=== PATIENT | male | born 1945 | race Caucasian/White ===

== ENCOUNTER 2018-08-29 17:27 | Observation (INO) | payer BC, MEDICARE ==
--- NOTE | 2018-08-29 17:45 | ED PDOC ---
HPI:STROKE - Time Time: 17:40 - Chief Complaint Chief Complaint: Slurred speech, Facial droop - Onset Onset: Hours (x3 hours ago) - Notes: Notes:: Patient is a 72 year old male with a past medical history of diabetes, hypertension, and hyperlipidemia, who presents to the emergency department after sustaining a possible stroke. According to patient's daughter, patient was at [employer] with his friend/neighbor around 1440 today. His friend stated that he noticed the patient to have slurred speech and dizziness. Patient drank orange juice and proceeded to go home. 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 The paramedics found him to have a low blood pressure and a blood sugar of 186. Patient refused medical treatment at home. The friend called the patient's daughter who felt that the patient seemed a bit "off" after speaking with him on the phone. She notified her brother who felt the same way, at which point she decided to go and see him at his house. When the daughter arrived to patient's home, she found him to have slurred speech, diaphoretic, not as coherent and seemed upset. PMD: No provider NIHSS Stroke Scale - Date/Time Evaluation Performed Date Performed: 08/29/18 Time Performed: 17:40 When Was NIHSS Performed: Baseline - How Severe is the Stroke Level of Consciousness: 0=Alert LOC to Questions: 0=Both comments correct LOC to commands: 0=Obeys both correctly Best Gaze: 0=Normal Visual: 0=No visual loss Facial: 2=Partial (lower face paralysis) Motor Arm - Left: 0=No drift Motor Arm - Right: 0=No drift Motor Leg - Left: 0=No drift Motor Leg - Right: 0=No drift Limb Ataxia: 0=Absent Sensory: 0=Normal Best Language: 1=Mild to moderate aphasia Dysarthia: 1=Mild to moderate slurring Extinction & Inattention (Neglect): 0=Normal, no object Score: 4 rTPA Inclusion/Exclusion - Refusal of Treatment Patient Refused Treatment: No - Inclusion Criteria for Altepase Patient is 18 years or Older: Yes The Clinical Diagnosis of Ischemic Stroke That is Causing a Potentially Disabli ng Neurological Deficit: Yes Time of Onset is Well Established to be Less Than 270 Minute Before Treatment Would Begin: Yes Risk/Benefit Discussed With Patient/Family Member Present: Yes - Warning to TPA With Conditions Condition: Rapid Improvement Past Medical History Reviewed: Historical Data, Nursing Documentation, Vital Signs Vital Signs: Last Vital Signs Temp 98.1 F 08/29/18 17:33 Pulse 72 08/29/18 17:33 Resp 16 08/29/18 17:33 BP 196/67 H 08/29/18 17:33 Pulse Ox 100 08/29/18 17:33 - Medical History PMH: No Chronic Diseases, Diabetes, HTN, Hyperlipidemia Other PMH: tuberculosis - Surgical History Surgical History: No Surg Hx - Family History Family History: States: CAD - Social History Current smoker - smoking cessation education provided: No Ex-Smoker (has not smoked in the last 12 months): No - Home Medications Home Medications: Ambulatory Orders Medication Instructions Recorded Aspirin [Adult Aspirin] 81 mg PO DAILY #30 tablet. 08/30/18 Aspirin [Ecotrin] 81 mg PO DAILY tabec 08/30/18 Atorvastatin [Lipitor] 20 mg PO DAILY 08/30/18 Carvedilol [Coreg] 6.25 mg PO BID 08/30/18 Clopidogrel [Plavix] 75 mg PO DAILY #30 tab 08/30/18 Clopidogrel [Plavix] 75 mg PO DAILY #30 tab 08/30/18 Folic Acid 1 mg PO DAILY 08/30/18 GlipiZIDE [Glucotrol] 10 mg PO DAILY 08/30/18 Insulin Aspart [Novolog Flexpen] 20 units SC HS 08/30/18 Insulin Lispro [Humalog (Insulin 10 units SQ DAILY 08/30/18 Lispro)] Insulin Lispro [Humalog (Insulin 15 unit SQ DAILY 08/30/18 Lispro)] Insulin Lispro [Humalog (Insulin 20 unit SQ DAILY 08/30/18 Lispro)] Losartan/Hydrochlorothiazide 1 each PO DAILY 08/30/18 [Losartan-Hctz 50-12.5 mg Tab] MetFORMIN [glucoPHAGE] 1,000 mg PO BID 08/30/18 PARoxetine [Paxil] 20 mg PO DAILY 08/30/18 Pantoprazole [Protonix] 40 mg PO DAILY #30 ect 08/30/18 SITagliptin [Januvia] 100 mg PO DAILY 08/30/18 - Allergies Allergies/Adverse Reactions: Allergies Allergy/AdvReac Type Severity Reaction Status Date / Time No Known Allergies Allergy Verified 08/29/18 17:31 Review of Systems ROS Statement: Except As Marked, All Systems Reviewed And Found Negative (and as per HPI) Constitutional: Positive for: Sweats Neurological: Positive for: Change in Speech, Other Physical Exam - Reviewed Nursing Documentation Reviewed: Yes Vital Signs Reviewed: Yes - Physical Exam Appears: Positive for: In Acute Distress Head Exam: Positive for: ATRAUMATIC, NORMOCEPHALIC Skin: Positive for: Warm, Dry Eye Exam: Positive for: EOMI, PERRL. Negative for: Nystagmus ENT: Negative for: Pharyngeal Erythema, Tonsillar Exudate Neck: Positive for: Painless ROM, Supple Cardiovascular/Chest: Positive for: Regular Rate, Rhythm. Negative for: Murmur Respiratory: Positive for: Normal Breath Sounds. Negative for: Respiratory Dist ress Gastrointestinal/Abdominal: Positive for: Soft. Negative for: Tenderness Back: Positive for: Normal Inspection. Negative for: Decreased ROM Extremity: Positive for: Normal ROM. Negative for: Deformity Lymphatic: Negative for: Adenopathy Neurological/Psych: Positive for: Awake, Alert, Oriented, Facial Droop - Laboratory Results Result Diagrams: 08/29/18 17:46 08/30/18 04:45 - ECG ECG: Positive for: Interpreted By Ms ECG Rhythm: Positive for: Normal QRS, Normal ST Segment, Sinus Rhythm O2 Sat by Pulse Oximetry: 100 - Radiology X-Ray: Interpreted by Ms X-Ray Interpretation: No Acute Disease - Progress Condition: Improving,but remains with symptoms - Critical Care Total Time (In Min): 30 Documented Critical Care: Time excludes all time spent performint seperately billable procedures Medical Decision Making Medical Decision Making: Time: 1745 Impression: possible stroke Plan: --BBK Type and screen --CT head without [code stroke] --EKG --CMP --Hemoglobin A1C --Lipid panel --Troponin I --Stroke team Consultation --CBC with differential --PT --PTT --Chest xray --Sodium chloride 1,000 ml --Saline lock --Vital signs Q15 min --Glucose, Blood, POC --Call stroke team --Nursing swallow screen --ED obtain labs STAT Time: 1749 --Consultation with Dr. Wallace. Time: 1754 --Reevaluated patient when back from CT and patient demonstrated no facial droop. He appears to be more easily conversing and symptoms seem to be resolving. --Thrombolytics will not be give at this time. CT head Findings: Accession No. : [id number] Patient Name / ID : ARACELI HUDSON / [id number] Exam Date : 08/29/2018 17:42:15 ( Approved ) Study Comment : Sex / Age : M / 72Y Creator : Samuel De La Cruz MD Dictator : Samuel De La Cruz MD Asset Protection Professional : Perforator Typist : Samuel De La Cruz MD Approver2 : Report Date : 08/29/2018 17:58:47 My Comment : Date of service: 08/29/2018 PROCEDURE: CT HEAD WITHOUT CONTRAST. HISTORY: code stroke COMPARISON: None available. TECHNIQUE: Axial computed tomography images were obtained through the head/brain without intravenous contrast. Radiation dose: Total exam DLP = 1001.92 mGy-cm. This CT exam was performed using one or more of the following dose reduction techniques: Automated exposure control, adjustment of the mA and/or kV according to patient size, and/or use of iterative reconstruction technique. FINDINGS: HEMORRHAGE: No intracranial hemorrhage. BRAIN: Good corticomedullary differentiation is seen. Proportional, diffuse expansion of the ventriculosulcal and cisternal spaces is appreciated with white matter lucency compatible with diffuse cerebral atrophy and chronic microangiopathy. No suspicious extra-axial fluid collection is identified and the midline brain anatomy appears grossly nonfocal as imaged. There is no mass effect throughout. VENTRICLES: Unremarkable. No hydrocephalus. CALVARIUM: Unremarkable. PARANASAL SINUSES: Unremarkable as visualized. No significant inflammatory changes. MASTOID AIR CELLS: Unremarkable as visualized. No inflammatory changes. OTHER FINDINGS: None. IMPRESSION: Age-appropriate age related neuro degenerative change are identified as discussed above. No definite acute findings by standard CT criteria. Follow-up CT or MRI advised given clinical history. Findings discussed with Dr. Banerjee with written down and read back verification 08/29/2018 5:55 p.m.. Time: 1756 --Radiologist called and reported a negative CT of the head. --CTA head and neck order for further evaluation. Time: 1853 CTA finding: Accession No. : [id number] Patient Name / ID : ARACELI HUDSON / [id number] Exam Date : 08/29/2018 18:23:30 ( Approved ) Study Comment : Sex / Age : M / 72Y Creator : Samuel De La Cruz MD Dictator : Samuel De La Cruz MD Asset Protection Professional : Perforator Typist : Samuel De La Cruz MD Approver2 : Report Date : 08/29/2018 18:54:55 My Comment : Date of service: 08/29/2018 PROCEDURE: CT Angiography of the Brain. HISTORY: code stroke COMPARISON: None available. TECHNIQUE: CT angiography of the head and neck was performed following intravenous contrast administration. Coronal and sagittal maximum intensity projection reformatted images were generated. Contrast Dose: Omnipaque 320, 95 cc Radiation dose: Total exam DLP = 457.28 mGy-cm. This CT exam was performed using one or more of the following dose reduction techniques: Automated exposure control, adjustment of the mA and/or kV according to patient size, and/or use of iterative reconstruction technique. FINDINGS: INTERNAL CEREBRAL ARTERIES: Note is made of partially calcified atherosclerosis of the bilateral cavernous internal carotid artery segments without significant stenosis. The skull base, petrous, and supraclinoid segments are bilaterally widely patent. ANTERIOR CEREBRAL ARTERIES: The bilateral A2 segments are unremarkable and widely patent as well as left A1 DEBORAH segment. The right A1 DEBORAH segment is hypoplastic. Smaller distal branches unremarkable, as visualized. MIDDLE CEREBRAL ARTERIES: Unremarkable. M1 and M2 segments are widely patent. Perisylvian branches grossly symmetric. POSTERIOR CIRCULATION: Basilar Artery: Unremarkable. Distal Vertebral Arteries: Balance vertebrobasilar circulation. Posterior Cerebral Arteries: Unremarkable. Posterior Inferior Cerebellar Arteries: Unremarkable. NECK CTA: Aortic Arch: Normal three vessl arch identified. Common Carotid arteries: The bilateral common carotid appear widely patent from their origins to their bifurcations with no significant stenosis appreciated. No evidence to suggest common carotid artery dissection. Internal Carotid arteries: No significant stenosis is appreciated throughout the cervical internal carotid artery segments bilaterally and there is no evidence of dissection either. External Carotid arteries: Appear unremarkable bilaterally. Vertebral arteries: The bilateral vertebral arteries appear normal in caliber from their origins to their distal cervical segments. No significant stenosis or definite pattern of dissection. ANEURYSM/ VASCULAR MALFORMATIONS: None. OTHER FINDINGS: None. IMPRESSION: 1. No large vessel occlusion appreciable on intracranial MR angiography. Limited cavernous atherosclerotic ICA changes are identified bilaterally. 2. No occlusion of the cervical CCA/ICA complexes bilaterally or the bilateral vertebral arteries. No significant stenosis encountered either. Time: 1929 --Discussed with Dr. Moreno, hospitalist, about admission. --Discussed with Dr. Wallace who recommends Plavix load. --Discussed plan of care with patient and patient's daughter. Scribe Attestation: Documented by Ernie Rizo, acting as a scribe for Dorothy Banerjee MD. Provider Scribe Attestation: All medical record entries made by the Scribe were at my direction and personally dictated by me. I have reviewed the chart and agree that the record accurately reflects my personal performance of the history, physical exam, medical decision making, and the department course for this patient. I have also personally directed, reviewed, and agree with the discharge instructions and disposition. Disposition - Clinical Impression Clinical Impression: TIA (transient ischemic attack) Counseled Patient/Family Regarding: Studies Performed, Diagnosis - Disposition Disposition Time: 19:00 Condition: FAIR - Pt Status Changed To: Hospital Disposition Of: Observation - POA Present On Arrival: None
[2018-08-29 17:55] LABS: BASO % 0.2 % (0.0-2.0); EOS % 0.2 % (0.0-4.0); LYMPH # 1.5 K/uL (1.0-4.3); LYMPH % 12.7 % (20.0-40.0); MEAN CELL VOLUME 89.4 fl (80.0-94.0); MEAN CORPUSCULAR HEMOGLOBIN 30.2 pg (27.0-31.0); MEAN CORPUSCULAR HGB CONC 33.7 g/dL (33.0-37.0); MEAN PLATELET VOLUME 8.1 fl (7.2-11.7); MONO # 0.6 K/uL (0.0-0.8); MONO % 4.7 % (0.0-10.0); NEUT % 82.2 % (50.0-75.0); NRBC % 0.1 % (0.0-0.0); RBC 4.65 Mil/uL (4.40-5.90); RED CELL DISTRIBUTION WIDTH 14.2 % (11.5-14.5); WHITE BLOOD COUNT 12.2 K/uL (4.8-10.8)
--- NOTE | 2018-08-29 18:02 | CT ---
Date of service: 08/29/2018 PROCEDURE: CT HEAD WITHOUT CONTRAST. HISTORY: code stroke COMPARISON: None available. TECHNIQUE: Axial computed tomography images were obtained through the head/brain without intravenous contrast. Radiation dose: Total exam DLP = 1001.92 mGy-cm. This CT exam was performed using one or more of the following dose reduction techniques: Automated exposure control, adjustment of the mA and/or kV according to patient size, and/or use of iterative reconstruction technique. FINDINGS: HEMORRHAGE: No intracranial hemorrhage. BRAIN: Good corticomedullary differentiation is seen. Proportional, diffuse expansion of the ventriculosulcal and cisternal spaces is appreciated with white matter lucency compatible with diffuse cerebral atrophy and chronic microangiopathy. No suspicious extra-axial fluid collection is identified and the midline brain anatomy appears grossly nonfocal as imaged. There is no mass effect throughout. VENTRICLES: Unremarkable. No hydrocephalus. CALVARIUM: Unremarkable. PARANASAL SINUSES: Unremarkable as visualized. No significant inflammatory changes. MASTOID AIR CELLS: Unremarkable as visualized. No inflammatory changes. OTHER FINDINGS: None. IMPRESSION: Age-appropriate age related neuro degenerative change are identified as discussed above. No definite acute findings by standard CT criteria. Follow-up CT or MRI advised given clinical history. Findings discussed with Dr. Banerjee with written down and read back verification 08/29/2018 5:55 p.m..
[2018-08-29] MEDS ORDERED: Iodixanol 320 MG/ML 100 ML BOTTLE IV ONE (18:03)
[2018-08-29] MEDS ORDERED: Sodium Chloride 0.9% 50 ML IV ONE (18:04)
[2018-08-29 18:13] LABS: ALB/GLOB RATIO 1.2 (1.0-2.1); ALBUMIN 4.5 g/dL (3.5-5.0); ALT/SGPT 27 U/L (21-72); AST/SGOT 29 U/L (17-59); BLOOD UREA NITROGEN 25 mg/dl (9-20); CALCIUM 9.9 mg/dL (8.4-10.2); GFR NON-AFRICAN AMERICAN > 60; HDL CHOLESTEROL 44 MG/DL (30-70)
[2018-08-29 18:19] LABS: PROTHROMBIN TIME 11.6 Seconds (9.8-13.1)
[2018-08-29 18:21] LABS: PARTIAL THROMBOPLASTIN TIME 30.9 Seconds (25.6-37.1)
[2018-08-29 18:24] LABS: LDL CHOLESTEROL 88 mg/dL (0-129)
--- NOTE | 2018-08-29 18:58 | CT ---
Date of service: 08/29/2018 PROCEDURE: CT Angiography of the Brain. HISTORY: code stroke COMPARISON: None available. TECHNIQUE: CT angiography of the head and neck was performed following intravenous contrast administration. Coronal and sagittal maximum intensity projection reformatted images were generated. Contrast Dose: Omnipaque 320, 95 cc Radiation dose: Total exam DLP = 457.28 mGy-cm. This CT exam was performed using one or more of the following dose reduction techniques: Automated exposure control, adjustment of the mA and/or kV according to patient size, and/or use of iterative reconstruction technique. FINDINGS: INTERNAL CEREBRAL ARTERIES: Note is made of partially calcified atherosclerosis of the bilateral cavernous internal carotid artery segments without significant stenosis. The skull base, petrous, and supraclinoid segments are bilaterally widely patent. ANTERIOR CEREBRAL ARTERIES: The bilateral A2 segments are unremarkable and widely patent as well as left A1 DEBORAH segment. The right A1 DEBORAH segment is hypoplastic. Smaller distal branches unremarkable, as visualized. MIDDLE CEREBRAL ARTERIES: Unremarkable. M1 and M2 segments are widely patent. Perisylvian branches grossly symmetric. POSTERIOR CIRCULATION: Basilar Artery: Unremarkable. Distal Vertebral Arteries: Balance vertebrobasilar circulation. Posterior Cerebral Arteries: Unremarkable. Posterior Inferior Cerebellar Arteries: Unremarkable. NECK CTA: Aortic Arch: Normal three vessl arch identified. Common Carotid arteries: The bilateral common carotid appear widely patent from their origins to their bifurcations with no significant stenosis appreciated. No evidence to suggest common carotid artery dissection. Internal Carotid arteries: No significant stenosis is appreciated throughout the cervical internal carotid artery segments bilaterally and there is no evidence of dissection either. External Carotid arteries: Appear unremarkable bilaterally. Vertebral arteries: The bilateral vertebral arteries appear normal in caliber from their origins to their distal cervical segments. No significant stenosis or definite pattern of dissection. ANEURYSM/ VASCULAR MALFORMATIONS: None. OTHER FINDINGS: None. IMPRESSION: 1. No large vessel occlusion appreciable on intracranial MR angiography. Limited cavernous atherosclerotic ICA changes are identified bilaterally. 2. No occlusion of the cervical CCA/ICA complexes bilaterally or the bilateral vertebral arteries. No significant stenosis encountered either.
[2018-08-29] MEDS: Sodium Chloride 0.9% 1,000 ML IV SCH (19:07)
--- NOTE | 2018-08-29 20:55 | CP.PCM.HP ---
<Sultan Kay - Last Filed: 08/29/18 22:30> History of Present Illness - History of Present Illness History of Present Illness: CC: Slurred speech HPI: 72 year old male with PMHx of HTN, IDDM II, hyperlipidemia presented to the [facility] ED for evaluation of possible stroke. According to patient's daughter, patient went to [facility] with his friend around 1400 today and she received a call from her father's friend stating patient has slurred speech and dizziness. Patient's friend gave him orange juice, brought him home and EMS was called. Patient's son checked his blood sugar at home and it was 160s. Patient's daughter reports patient develops slurred speech, diaphoretic and incoherent sp eech. Patient was also seem to be agitated with them. Denies any hx similar symptoms in the past. Denies any hx CAD. Patient denies being on low dose aspirin. In the ED, NIHSS score was 4, code stroke was called and neurology Dr. Wallace was consulted. Patient's head CT was negative for acute stroke and CTA of head/neck was negative for large vessel occlusion. However, patient's symptoms started to resolve and patient was back to his baseline at 1800. Patient received a dose of asprin 325 mg and plavix 75 mg. Patient is admitted for evaluation of CVA. ROS: all 12 systems reviewed and negative except as mentioned in HPI PMD: Dr. 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 Patient's pharmacy was closed ([facility]). Present on Admission - Present on Admission Any Indicators Present on Admission: No Review of Systems - Review of Systems Review of Systems: All 12 systems reviewed and negative except as mentioned in HPI Past Patient History - Infectious Disease Hx of Infectious Diseases: None - Past Social History Smoking Status: Never Smoked - CARDIAC Hx Hypertension: Yes - ENDOCRINE/METABOLIC Hx Diabetes Mellitus Type 2: Yes - PSYCHIATRIC Hx Substance Use: No - SURGICAL HISTORY Hx Surgeries: No - ANESTHESIA Hx Anesthesia: No Meds Allergies/Adverse Reactions: Allergies Allergy/AdvReac Type Severity Reaction Status Date / Time No Known Allergies Allergy Verified 08/29/18 17:31 Physical Exam - Constitutional Appears: No Acute Distress - Head Exam Head Exam: NORMAL INSPECTION - Eye Exam Eye Exam: EOMI, Normal appearance, PERRL Pupil Exam: NORMAL ACCOMODATION - ENT Exam ENT Exam: Mucous Membranes Moist - Neck Exam Neck exam: Positive for: Normal Inspection - Respiratory Exam Respiratory Exam: Clear to Auscultation Bilateral, NORMAL BREATHING PATTERN. absent: Rhonchi, Wheezes - Cardiovascular Exam Cardiovascular Exam: REGULAR RHYTHM, +S1, +S2 - GI/Abdominal Exam GI & Abdominal Exam: Normal Bowel Sounds, Soft. absent: Tenderness - Extremities Exam Extremities exam: Positive for: normal inspection. Negative for: calf ten derness, pedal edema - Neurological Exam Neurological exam: Alert, CN II-XII Intact, Oriented x3, Reflexes Normal Additional comments: At the time of my evaluation around 20:30 AAO X 3, follows commands appropriately Speech is clear. NO aphasia or dysarthria No facial asymmetry Motor strength 5/5 both upper extremities and lower extremities; and sensory intact No pronator drip Negative finger to nose test reflexes normal - Psychiatric Exam Psychiatric exam: Normal Affect - Skin Skin Exam: Normal Color Results - Vital Signs Recent Vital Signs: Last Vital Signs Temp 97.4 F L 08/29/18 20:39 Pulse 80 08/29/18 20:39 Resp 19 08/29/18 20:39 BP 135/74 08/29/18 20:39 Pulse Ox 100 08/29/18 20:39 - Labs Result Diagrams: 08/29/18 17:46 08/29/18 17:57 Labs: Laboratory Results - last 24 hr 08/29/18 08/29/18 08/29/18 17:37 17:46 17:46 WBC 12.2 H RBC 4.65 Hgb 14.0 Hct 41.5 MCV 89.4 MCH 30.2 MCHC 33.7 RDW 14.2 Plt Count 292 MPV 8.1 Neut % (Auto) 82.2 H Lymph % (Auto) 12.7 L [place] % (Auto) 4.7 Eos % (Auto) 0.2 Baso % (Auto) 0.2 Neut # (Auto) 10.0 H Lymph # (Auto) 1.5 [place] # (Auto) 0.6 Eos # (Auto) 0.0 Baso # (Auto) 0.0 PT 11.6 INR 1.0 APTT 30.9 Sodium Potassium Chloride Carbon Dioxide Anion Gap BUN Creatinine Est GFR ( Amer) Est GFR (Non-Af Amer) POC Glucose (mg/dL) 185 H Random Glucose Calcium Total Bilirubin AST ALT Alkaline Phosphatase Troponin I Total Protein Albumin Globulin Albumin/Globulin Ratio Triglycerides Cholesterol LDL Cholesterol Direct HDL Cholesterol Blood Type Antibody Screen BBK History Checked 08/29/18 08/29/18 17:57 17:57 WBC RBC Hgb Hct MCV MCH MCHC RDW Plt Count MPV Neut % (Auto) Lymph % (Auto) [place] % (Auto) Eos % (Auto) Baso % (Auto) Neut # (Auto) Lymph # (Auto) [place] # (Auto) Eos # (Auto) Baso # (Auto) PT INR APTT Sodium 138 Potassium 3.9 Chloride 96 L Carbon Dioxide 25 Anion Gap 21 H BUN 25 H Creatinine 1.0 Est GFR ( Amer) > 60 Est GFR (Non-Af Amer) > 60 POC Glucose (mg/dL) Random Glucose 252 H Calcium 9.9 Total Bilirubin 0.6 AST 29 ALT 27 Alkaline Phosphatase 76 Troponin I < 0.0120 Total Protein 8.2 Albumin 4.5 Globulin 3.7 Albumin/Globulin Ratio 1.2 Triglycerides 300 H Cholesterol 213 H LDL Cholesterol Direct 88 HDL Cholesterol 44 Blood Type O POSITIVE Antibody Screen Negative BBK History Checked No verified bt Assessment & Plan - Assessment and Plan (Free Text) Assessment: 72 year old male with PMHx of HTN, IDDM II, hyperlipidemia presented to the [facility] ED for evaluation of possible stroke. According to patient's daughter, patient went to [facility] with his friend around 1400 and she received a call from her father's friend stating patient has slurred speech and dizziness.In the ED, NIHSS score was 4, code stroke was called and neurology Dr. Wallace was consulted. Patient's head CT was negative for acute stroke and CTA of head/neck was negative for large vessel occlusion. However, patient's symptoms started to resolve and patient was back to his baseline at 1800. Patient received a dose of asprin 325 mg and plavix 75 mg. Patient is admitted for evaluation of CVA. Plan: Slurred speech and aphasia likely secondary to TIA vs stroke -Admit to telemetry -NIHSS score 4 upon arrival to ED -Code stroke activated and Neurologist Dr. Wallace consulted -Head CT: Age-appropriate age related neuro degenerative change are identified as discussed above. No definite acute findings by standard CT criteria. -MRA head and neck: . No large vessel occlusion appreciable on intracranial MR angiography. Limited cavernous atherosclerotic ICA changes are identified bilaterally. No occlusion of the cervical CCA/ICA complexes bilaterally or the bilateral vertebral arteries. No significant stenosis encountered either. -s/p aspirin 325 mg and plavix 75 mg in ED -ECG normal sinus rhythm @75 bpm. -troponin x 1 neg -Neuro check q4 hrs -Swallow eval passed in ED -start atorvastin 80 mg po qhs -PT/OT eval -f/u brain MRI and echo -f/u am labs IDDMII -accucheck ACHS -Low sliding scale insulin -Will resume home medication once med list available in AM HTN -stable now -Will resume home medication once med list available in AM -continue to monitor Hyperlipidemia -start atorvastatin 80 mg po qhs DVT prophylaxis -Lovenox 40 mg sc daily Code status -Full code Patient seen, examined and plan discussed with Mikey Villanueva, pgy-2 <Nilesh Jensen M - Last Filed: 08/30/18 02:19> Results - Vital Signs Recent Vital Signs: Last Vital Signs Temp 98.4 F 08/30/18 00:04 Pulse 74 08/30/18 00:04 Resp 16 08/30/18 00:04 BP 126/63 08/30/18 00:04 Pulse Ox 100 08/30/18 00:04 - Labs Result Diagrams: 08/29/18 17:46 08/29/18 17:57 Labs: Laboratory Results - last 24 hr 08/29/18 08/29/18 08/29/18 17:37 17:46 17:46 WBC 12.2 H RBC 4.65 Hgb 14.0 Hct 41.5 MCV 89.4 MCH 30.2 MCHC 33.7 RDW 14.2 Plt Count 292 MPV 8.1 Neut % (Auto) 82.2 H Lymph % (Auto) 12.7 L [place] % (Auto) 4.7 Eos % (Auto) 0.2 Baso % (Auto) 0.2 Neut # (Auto) 10.0 H Lymph # (Auto) 1.5 [place] # (Auto) 0.6 Eos # (Auto) 0.0 Baso # (Auto) 0.0 PT 11.6 INR 1.0 APTT 30.9 Sodium Potassium Chloride Carbon Dioxide Anion Gap BUN Creatinine Est GFR ( Amer) Est GFR (Non-Af Amer) POC Glucose (mg/dL) 185 H Random Glucose Calcium Total Bilirubin AST ALT Alkaline Phosphatase Troponin I Total Protein Albumin Globulin Albumin/Globulin Ratio Triglycerides Cholesterol LDL Cholesterol Direct HDL Cholesterol Blood Type Antibody Screen BBK History Checked 08/29/18 08/29/18 08/30/18 17:57 17:57 00:16 WBC RBC Hgb Hct MCV MCH MCHC RDW Plt Count MPV Neut % (Auto) Lymph % (Auto) [place] % (Auto) Eos % (Auto) Baso % (Auto) Neut # (Auto) Lymph # (Auto) [place] # (Auto) Eos # (Auto) Baso # (Auto) PT INR APTT Sodium 138 Potassium 3.9 Chloride 96 L Carbon Dioxide 25 Anion Gap 21 H BUN 25 H Creatinine 1.0 Est GFR ( Amer) > 60 Est GFR (Non-Af Amer) > 60 POC Glucose (mg/dL) Random Glucose 252 H Calcium 9.9 Total Bilirubin 0.6 AST 29 ALT 27 Alkaline Phosphatase 76 Troponin I < 0.0120 < 0.0120 Total Protein 8.2 Albumin 4.5 Globulin 3.7 Albumin/Globulin Ratio 1.2 Triglycerides 300 H Cholesterol 213 H LDL Cholesterol Direct 88 HDL Cholesterol 44 Blood Type O POSITIVE Antibody Screen Negative BBK History Checked No verified bt Assessment & Plan - Assessment and Plan (Free Text) Plan: History as documented by resident was reviewed with patient and resident. I personally performed the price elements of physical exam and agree with the above findings. Diagnostics reviewed. X-ray and EKG as above interpreted by me. Medical decision making and plan of care performed by me. 78 yo male with hx of HTN, HLD, DM-II p/w TIA symptoms. Code stroke was called and imaging including CT head and CTA head/neck failed to reveal any acute pathology. Symptoms resolved in ED. Not a tPA candidate. Upon my evaluation neuro-exam is completely non-focal. Will admit under obs/tele with frequent accucheks. ASA and statin. Optimize BP. Further work up as per neurology recommendation. - Date & Time Date: 08/29/18 Time: 22:30
[2018-08-29] MEDS ORDERED: Glucagon Recombinant 1 mg Inj IM PRN (21:41)
[2018-08-29] MEDS ORDERED: Dextrose 50% SYRINGE Inj (50 ml) IV PRN (21:41)
[2018-08-29] MEDS: Insulin Regular 100 units/ml SC SCH (22:00)
[2018-08-30] MEDS: Sodium Chloride 0.9% 1,000 ML IV SCH ×2 (04:27→17:03)
[2018-08-30 05:49] VITALS: RESP 18
[2018-08-30 06:29] LABS: ALBUMIN 3.8 g/dL (3.5-5.0); ALT/SGPT 36 U/L (21-72); AST/SGOT 26 U/L (17-59); BLOOD UREA NITROGEN 19 mg/dl (9-20); CALCIUM 9.3 mg/dL (8.4-10.2); GFR NON-AFRICAN AMERICAN > 60
[2018-08-30] MEDS ORDERED: Enoxaparin 40 mg Syringe SC SCH (09:00)
[2018-08-30] MEDS ORDERED: Pantoprazole 40 mg EC Tab PO SCH (09:00)
[2018-08-30] MEDS: Insulin Regular 100 units/ml SC SCH ×3 (10:35→17:00)
--- NOTE | 2018-08-30 11:39 | RAD ---
Date of service: 08/29/2018 HISTORY: Code Stroke COMPARISON: No prior. FINDINGS: LUNGS: The lungs are well inflated and clear. There are fibrotic changes in the left upper lobe. PLEURA: No pleural effusions or pneumothorax. CARDIOVASCULAR: The heart is normal in size. No aortic atherosclerotic calcifications present. OSSEOUS STRUCTURES: Within normal limits for the patient's age. VISUALIZED UPPER ABDOMEN: Normal. OTHER FINDINGS: None. IMPRESSION: No active pulmonary disease.
--- NOTE | 2018-08-30 13:05 | MRI ---
Date of service: 08/30/2018 PROCEDURE: MRI BRAIN WITHOUT CONTRAST HISTORY: slurred speech, eval for CVA COMPARISON: CT head without contrast from 08/29/2018. TECHNIQUE: Multiplanar, multisequence MR images of the brain were obtained without intravenous contrast enhancement. FINDINGS: HEMORRHAGE: None DWI: No evidence of an acute or early subacute infarction. BRAIN PARENCHYMA: There are moderate chronic microangiopathic changes. There is no mass, mass effect or abnormal extra-axial fluid collection. There is no territorial infarction. The midline sagittal structures are normal. VENTRICLES: There is mild age-related global parenchymal volume loss and proportionate enlargement of the ventricles and cortical sulci. CRANIUM: There is normal bone marrow signal pattern. ORBITS: Grossly unremarkable. PARANASAL SINUSES/MASTOIDS: Predominantly clear. VASCULAR SYSTEM: There are normal signal voids in the larger intracranial arteries. OTHER FINDINGS: None. IMPRESSION: No acute intracranial abnormality. Moderate chronic microangiopathic changes and mild age-related global parenchymal loss.
--- NOTE | 2018-08-30 14:17 | CP.PCM.DIS ---
<Yanickhaylie MartínezAmarilis - Last Filed: 08/30/18 14:55> Provider - Provider Date of Admission: 08/29/18 19:08 Attending physician: Lewis Avendaño MD Primary care physician: Non [facility] Provider Consults: 08/29/18 17:39 Stroke Team Consult Stat Comment: Consulting Provider: Neurohospitalist Consulting Physician: NEUROHOSP Neurohospitalist for Consult: Barry Haines Neurohospitalist for Consult: Niles Garcia Reason for Consult: left facial droop 08/30/18 10:00 Social Work Referral Routine Comment: Lives Diomedes Physician Instructions: Reason For Exam: Lives Alone Diagnosis - Discharge Diagnosis (1) TIA (transient ischemic attack) Status: Acute (2) HTN (hypertension) Status: Chronic (3) Diabetes mellitus Status: Chronic (4) Hypertriglyceridemia Status: Chronic Hospital Course - Lab Results Lab Results: Most Recent Lab Values WBC 12.2 K/uL (4.8-10.8) H 08/29/18 17:46 RBC 4.65 Mil/uL (4.40-5.90) 08/29/18 17:46 Hgb 14.0 g/dL (12.0-18.0) 08/29/18 17:46 Hct 41.5 % (35.0-51.0) 08/29/18 17:46 MCV 89.4 fl (80.0-94.0) 08/29/18 17:46 MCH 30.2 pg (27.0-31.0) 08/29/18 17:46 MCHC 33.7 g/dL (33.0-37.0) 08/29/18 17:46 RDW 14.2 % (11.5-14.5) 08/29/18 17:46 Plt Count 292 K/uL (130-400) 08/29/18 17:46 MPV 8.1 fl (7.2-11.7) 08/29/18 17:46 Neut % (Auto) 82.2 % (50.0-75.0) H 08/29/18 17:46 Lymph % (Auto) 12.7 % (20.0-40.0) L 08/29/18 17:46 [place] % (Auto) 4.7 % (0.0-10.0) 08/29/18 17:46 Eos % (Auto) 0.2 % (0.0-4.0) 08/29/18 17:46 Baso % (Auto) 0.2 % (0.0-2.0) 08/29/18 17:46 Neut # (Auto) 10.0 K/uL (1.8-7.0) H 08/29/18 17:46 Lymph # (Auto) 1.5 K/uL (1.0-4.3) 08/29/18 17:46 [place] # (Auto) 0.6 K/uL (0.0-0.8) 08/29/18 17:46 Eos # (Auto) 0.0 K/uL (0.0-0.7) 08/29/18 17:46 Baso # (Auto) 0.0 K/uL (0.0-0.2) 08/29/18 17:46 PT 11.6 Seconds (9.8-13.1) 08/29/18 17:46 INR 1.0 08/29/18 17:46 APTT 30.9 Seconds (25.6-37.1) 08/29/18 17:46 Sodium 141 mmol/l (132-148) 08/30/18 04:45 Potassium 3.6 MMOL/L (3.6-5.0) 08/30/18 04:45 Chloride 101 mmol/L (98-107) 08/30/18 04:45 Carbon Dioxide 28 mmol/L (22-30) 08/30/18 04:45 Anion Gap 16 (10-20) 08/30/18 04:45 BUN 19 mg/dl (9-20) 08/30/18 04:45 Creatinine 0.9 mg/dl (0.8-1.5) 08/30/18 04:45 Est GFR ( Amer) > 60 08/30/18 04:45 Est GFR (Non-Af Amer) > 60 08/30/18 04:45 POC Glucose (mg/dL) 335 mg/dL (65-110) H 08/30/18 10:32 Random Glucose 156 mg/dL (75-110) H 08/30/18 04:45 Hemoglobin A1c 8.5 % (4.2-6.5) H 08/29/18 17:46 Calcium 9.3 mg/dL (8.4-10.2) 08/30/18 04:45 Phosphorus 3.0 mg/dl (2.5-4.5) 08/30/18 04:45 Magnesium 1.7 MG/DL (1.6-2.3) 08/30/18 04:45 Total Bilirubin 0.5 mg/dl (0.2-1.3) 08/30/18 04:45 AST 26 U/L (17-59) 08/30/18 04:45 ALT 36 U/L (21-72) 08/30/18 04:45 Alkaline Phosphatase 70 U/L (38-126) 08/30/18 04:45 Troponin I < 0.0120 ng/mL (0.00-0.120) 08/30/18 04:45 Total Protein 7.3 G/DL (6.3-8.2) 08/30/18 04:45 Albumin 3.8 g/dL (3.5-5.0) 08/30/18 04:45 Globulin 3.6 gm/dL (2.2-3.9) 08/30/18 04:45 Albumin/Globulin Ratio 1.0 (1.0-2.1) 08/30/18 04:45 Triglycerides 300 mg/DL (0-149) H 08/29/18 17:57 Cholesterol 213 mg/dL (0-199) H 08/29/18 17:57 LDL Cholesterol Direct 88 mg/dL (0-129) 08/29/18 17:57 HDL Cholesterol 44 MG/DL (30-70) 08/29/18 17:57 Vitamin B12 527 pg/mL (239-931) 08/30/18 04:45 Blood Type O POSITIVE 08/29/18 17:57 Blood Type Confirm O POSITIVE 08/30/18 08:30 Antibody Screen Negative 08/29/18 17:57 BBK History Checked No verified bt 08/29/18 17:57 - Hospital Course Hospital Course: 72 year old male with PMH of HTN, IDDM II, hyperlipidemia who was admitted for evaluation of possible stroke with slurred speech and dizziness. In the ED NIHSS his score was 4, code stroke was called and neurology Dr. Garcia was consulted. Patient's head CT was negative for acute stroke and CTA of head/neck was negative for large vessel occlusion. Patient's symptoms resolved after presentation to the ED and patient was back to his baseline at 1800 on 08/29/18. Patient received a dose of asprin 325 mg and plavix 75 mg. Patient had a MRI of brain done shows moderate chronic angiopathic changes age related, no acute abnormalities seen, Echocardio done was normal. Patient was also consulted by neurologist and recommendation given to continue aspirin 81 QD, statins. Patient today is found stable, having a conversation clearly without disarthria, follows commands, no facial asymmetry, sensorium and motor strength intact, no pronator drift. Patient denies CP, HOWELL, blurry vision, dizziness, N/V/D, fever, weakness, or other acute medical complaints at this time. Discharge Exam - Head Exam Head Exam: NORMAL INSPECTION - Additional Findings Additional findings: - Constitutional Appears: No Acute Distress - Head Exam Head Exam: NORMAL INSPECTION - Eye Exam Eye Exam: EOMI, Normal appearance, PERRL Pupil Exam: NORMAL ACCOMODATION - ENT Exam ENT Exam: Mucous Membranes Moist - Neck Exam Neck exam: Positive for: Normal Inspection - Respiratory Exam Respiratory Exam: Clear to Auscultation Bilateral, NORMAL BREATHING PATTERN. absent: Rhonchi, Wheezes - Cardiovascular Exam Cardiovascular Exam: REGULAR RHYTHM, +S1, +S2 - GI/Abdominal Exam GI & Abdominal Exam: Normal Bowel Sounds, Soft. absent: Tenderness - Extremities Exam Extremities exam: Positive for: normal inspection. Negative for: calf tenderness, pedal edema - Neurological Exam Neurological exam: Alert, CN II-XII Intact, Oriented x3, Reflexes Normal Additional comments: follows commands, clear speech, no aphasia or dysarthria. No facial asymmetry Motor strength 5/5 both upper extremities and lower extremities. intact sensorium No pronator drift noted. Discharge Plan - Discharge Medications Prescriptions: Aspirin [Adult Aspirin] 81 mg PO DAILY #30 tablet. Clopidogrel [Plavix] 75 mg PO DAILY #30 tab Clopidogrel [Plavix] 75 mg PO DAILY #30 tab Pantoprazole [Protonix] 40 mg PO DAILY #30 ect - Follow Up Plan Condition: GOOD Disposition: HOME/ ROUTINE Patient education suggested?: Yes Instructions: Transient Ischemic Attack (DC) Additional Instructions: Follow up with your PMD within a week Continue with you adherence with your medication and medical management. ED return instructions: Return to the ED if your symptoms recur, or you have HOWELL, CP, difficulties talking, SOB, dizziness, blurry vision, weakness, N/V, or any other new sypmtoms or concern presents. Referrals: Max Jiménez MD [Staff Provider] - <Jazmyn Vega Anh - Last Filed: 08/30/18 18:38> Provider - Provider Date of Admission: 08/29/18 19:08 Attending physician: Lewis Avendaño MD Primary care physician: Non H Provider Consults: 08/29/18 17:39 Stroke Team Consult Stat Comment: Consulting Provider: Neurohospitalist Consulting Physician: NEUROHOSP Neurohospitalist for Consult: Barry Haines Neurohospitalist for Consult: Niles Garcia Reason for Consult: left facial droop 08/30/18 10:00 Social Work Referral Routine Comment: Stevie Hercules Physician Instructions: Reason For Exam: Lives Alone Time Spent in preparation of Discharge (in minutes): 40 Hospital Course - Lab Results Lab Results: Most Recent Lab Values WBC 12.2 K/uL (4.8-10.8) H 08/29/18 17:46 RBC 4.65 Mil/uL (4.40-5.90) 08/29/18 17:46 Hgb 14.0 g/dL (12.0-18.0) 08/29/18 17:46 Hct 41.5 % (35.0-51.0) 08/29/18 17:46 MCV 89.4 fl (80.0-94.0) 08/29/18 17:46 MCH 30.2 pg (27.0-31.0) 08/29/18 17:46 MCHC 33.7 g/dL (33.0-37.0) 08/29/18 17:46 RDW 14.2 % (11.5-14.5) 08/29/18 17:46 Plt Count 292 K/uL (130-400) 08/29/18 17:46 MPV 8.1 fl (7.2-11.7) 08/29/18 17:46 Neut % (Auto) 82.2 % (50.0-75.0) H 08/29/18 17:46 Lymph % (Auto) 12.7 % (20.0-40.0) L 08/29/18 17:46 [place] % (Auto) 4.7 % (0.0-10.0) 08/29/18 17:46 Eos % (Auto) 0.2 % (0.0-4.0) 08/29/18 17:46 Baso % (Auto) 0.2 % (0.0-2.0) 08/29/18 17:46 Neut # (Auto) 10.0 K/uL (1.8-7.0) H 08/29/18 17:46 Lymph # (Auto) 1.5 K/uL (1.0-4.3) 08/29/18 17:46 [place] # (Auto) 0.6 K/uL (0.0-0.8) 08/29/18 17:46 Eos # (Auto) 0.0 K/uL (0.0-0.7) 08/29/18 17:46 Baso # (Auto) 0.0 K/uL (0.0-0.2) 08/29/18 17:46 PT 11.6 Seconds (9.8-13.1) 08/29/18 17:46 INR 1.0 08/29/18 17:46 APTT 30.9 Seconds (25.6-37.1) 08/29/18 17:46 Sodium 141 mmol/l (132-148) 08/30/18 04:45 Potassium 3.6 MMOL/L (3.6-5.0) 08/30/18 04:45 Chloride 101 mmol/L (98-107) 08/30/18 04:45 Carbon Dioxide 28 mmol/L (22-30) 08/30/18 04:45 Anion Gap 16 (10-20) 08/30/18 04:45 BUN 19 mg/dl (9-20) 08/30/18 04:45 Creatinine 0.9 mg/dl (0.8-1.5) 08/30/18 04:45 Est GFR ( Amer) > 60 08/30/18 04:45 Est GFR (Non-Af Amer) > 60 08/30/18 04:45 POC Glucose (mg/dL) 236 mg/dL (65-110) H 08/30/18 16:02 Random Glucose 156 mg/dL (75-110) H 08/30/18 04:45 Hemoglobin A1c 8.5 % (4.2-6.5) H 08/29/18 17:46 Calcium 9.3 mg/dL (8.4-10.2) 08/30/18 04:45 Phosphorus 3.0 mg/dl (2.5-4.5) 08/30/18 04:45 Magnesium 1.7 MG/DL (1.6-2.3) 08/30/18 04:45 Total Bilirubin 0.5 mg/dl (0.2-1.3) 08/30/18 04:45 AST 26 U/L (17-59) 08/30/18 04:45 ALT 36 U/L (21-72) 08/30/18 04:45 Alkaline Phosphatase 70 U/L (38-126) 08/30/18 04:45 Troponin I < 0.0120 ng/mL (0.00-0.120) 08/30/18 04:45 Total Protein 7.3 G/DL (6.3-8.2) 08/30/18 04:45 Albumin 3.8 g/dL (3.5-5.0) 08/30/18 04:45 Globulin 3.6 gm/dL (2.2-3.9) 08/30/18 04:45 Albumin/Globulin Ratio 1.0 (1.0-2.1) 08/30/18 04:45 Triglycerides 300 mg/DL (0-149) H 08/29/18 17:57 Cholesterol 213 mg/dL (0-199) H 08/29/18 17:57 LDL Cholesterol Direct 88 mg/dL (0-129) 08/29/18 17:57 HDL Cholesterol 44 MG/DL (30-70) 08/29/18 17:57 Vitamin B12 527 pg/mL (239-931) 08/30/18 04:45 Blood Type O POSITIVE 08/29/18 17:57 Blood Type Confirm O POSITIVE 08/30/18 08:30 Antibody Screen Negative 08/29/18 17:57 BBK History Checked No verified bt 08/29/18 17:57 Clinical Quality Measures - CQM - Stroke Antithrombotic Prescribed: Yes Anticoagulation Prescribed for Atrial Flutter, Atrial Fibrillation and History of:: Not Applicable Statin prescribed: Yes Attending/Attestation - Attestation I have personally seen and examined this patient.: Yes I have fully participated in the care of the patient.: Yes I have reviewed all pertinent clinical information, including history, physical exam and plan: Yes Notes (Text): TIA HTN DM Hyperlipidemia - Pt's sxs resolved in ED - Pt was observed in Tele- no abn rhythm - ASA, Statin, Plavix started - MRI of Brain : no acute CVA -ECHO: normal EF, wall motion, no PFO - CTA of head and neck : neg - seen by Neuro- Dr garcia - cleared for d/c - ff up with Dr Burns
[2018-08-30 15:53] VITALS: BP 120/68; PULSE 72; TEMP 97.8
--- NOTE | 2018-08-30 17:58 | CARD ---
APPROVED REPORT Date of service: 08/30/2018 EXAM: Two-dimensional and M-mode echocardiogram with Doppler and color Doppler. Other Information Quality : GoodRhythm : NSR INDICATION CVA/TIA 2D DIMENSIONS IVSd1.17 (0.7-1.1cm)LVDd3.20 (3.9-5.9cm) LVOT Diameter2.03 (1.8-2.4cm)PWd0.93 (0.7-1.1cm) IVSs1.56 (0.8-1.2cm)LVDs3.13 (2.5-4.0cm) FS (%) 2.1 %PWs1.05 (0.8-1.2cm) M-Mode DIMENSIONS Left Atrium (MM)3.82 (2.5-4.0cm)IVSd1.21 (0.7-1.1cm) Aortic Root3.71 (2.2-3.7cm)LVDd4.18 (4.0-5.6cm) Aortic Cusp Exc.1.91 (1.5-2.0cm)PWd1.09 (0.7-1.1cm) IVSs1.47 cmFS (%) 40 % LVDs2.50 (2.0-3.8cm)PWs1.44 cm Aortic Valve AoV Peak Mgoqtknk493.7cm/sAoV VTI27.7cmAO Peak GR.11mmHg LVOT Peak Jqhyfmns720.6cm/sLVOT VTI18.28cmAO Mean GR.6mmHg RAMIN (VMAX)1.10jt6JBK (VTI)1.22cm2 Mitral Valve MV E Stwqmkbq72.7cm/sMV DECEL [id number] A Macqocid30.0cm/s MV XLP53ccA/A ratio0.6MVA (PHT)3.08cm2 TDI Lateral E' Peak V10.27cm/sMedial E' Peak V7.25cm/sE/Lateral E'5.7 E/Medial E'8.1 LEFT VENTRICLE The left ventricle is normal size. There is normal left ventricular wall thickness. The left ventricular systolic function is normal. The estimated ejection fraction is 60-65% No regional wall motion abnormalities noted.. Transmitral Doppler flow pattern is Grade I-abnormal relaxation pattern. No left ventricle thrombus noted on this study. There is no ventricular septal defect visualized. There is no left ventricular aneurysm. There is no mass noted in the left ventricle. RIGHT VENTRICLE The right ventricle is normal size. There is normal right ventricular wall thickness. The right ventricular systolic function is normal. ATRIA The left atrium size is normal. The right atrium size is normal. The interatrial septum is intact with no evidence for an atrial septal defect. AORTIC VALVE The aortic valve is normal in structure. No aortic regurgitation is present. There is no aortic valvular stenosis. There is no aortic valvular vegetation. MITRAL VALVE The mitral valve is normal in structure. There is no evidence of mitral valve prolapse. There is no mitral valve stenosis. There is no mitral valve regurgitation noted. TRICUSPID VALVE The tricuspid valve is normal in structure. There is mild tricuspid valve regurgitation noted. There is no tricuspid valve prolapse or vegetation. There is no tricuspid valve stenosis. PULMONIC VALVE The pulmonary valve is normal in structure. There is no pulmonic valvular regurgitation. There is no pulmonic valvular stenosis. GREAT VESSELS The aortic root is normal in size. The ascending aorta is normal in size. The pulmonary artery is normal. The IVC is normal in size and collapses >50% with inspiration. PERICARDIAL EFFUSION There is no pericardial effusion. There is no pleural effusion. <Conclusion> The estimated ejection fraction is 60-65% Transmitral Doppler flow pattern is Grade I-abnormal relaxation pattern. The left atrium size is normal. There is mild tricuspid valve regurgitation noted. The IVC is normal in size and collapses >50% with inspiration. The interatrial septum is intact with no evidence for an atrial septal defect.
--- NOTE | 2018-08-30 18:19 | CP.PCM.CON ---
History of Present Illness - History of Present Illness History of Present Illness: Neurology consult dictated. Patient with resolved symptoms, MRI Normal. Not likely to be stroke. cleard to go home. Dr. Wallace Neurology Past Patient History - Infectious Disease Hx of Infectious Diseases: None - Past Medical History & Family History Past Medical History?: Yes - Past Social History Smoking Status: Never Smoked - CARDIAC Hx Hypertension: Yes - PULMONARY Hx Respiratory Disorders: No - NEUROLOGICAL Hx Neurological Disorder: No - HEENT Hx HEENT Problems: No - RENAL Hx Chronic Kidney Disease: No - ENDOCRINE/METABOLIC Hx Diabetes Mellitus Type 2: Yes - HEMATOLOGICAL/ONCOLOGICAL Hx Blood Disorders: No Hx AIDS: No Hx Human Immunodeficiency Virus (HIV): No - INTEGUMENTARY Hx Dermatological Problems: No - MUSCULOSKELETAL/RHEUMATOLOGICAL Hx Musculoskeletal Disorders: No Hx Falls: No - GASTROINTESTINAL Hx Gastrointestinal Disorders: No - GENITOURINARY/GYNECOLOGICAL Hx Genitourinary Disorders: No - PSYCHIATRIC Hx Substance Use: No - SURGICAL HISTORY Hx Surgeries: No - ANESTHESIA Hx Anesthesia: No Meds Home Medications: Home Medication List Medication Instructions Recorded Confirmed Type Aspirin [Adult Aspirin] 81 mg PO DAILY #30 tablet. 08/30/18 Rx Aspirin [Ecotrin] 81 mg PO DAILY tabec 08/30/18 Rx Clopidogrel [Plavix] 75 mg PO DAILY #30 tab 08/30/18 Rx Clopidogrel [Plavix] 75 mg PO DAILY #30 tab 08/30/18 Rx Pantoprazole [Protonix] 40 mg PO DAILY #30 ect 08/30/18 Rx Allergies/Adverse Reactions: Allergies Allergy/AdvReac Type Severity Reaction Status Date / Time No Known Allergies Allergy Verified 08/29/18 17:31 - Medications Medications: Current Medications Aspirin (Ecotrin) 81 mg PO DAILY [facility] Last Admin: 08/30/18 10:34 Dose: 81 mg Atorvastatin Calcium (Lipitor) 80 mg PO HS [facility] Last Admin: 08/30/18 02:03 Dose: 80 mg Clopidogrel Bisulfate (Plavix) 75 mg PO DAILY [facility] Last Admin: 08/30/18 17:02 Dose: 75 mg Dextrose (Dextrose 50% Inj) 0 ml IV STAT PRN; Protocol PRN Reason: Hypoglycemia Protocol Dextrose (Glutose 15) 0 gm PO ONCE PRN; Protocol PRN Reason: Hypoglycemia Protocol Enoxaparin Sodium (Lovenox) 40 mg SC DAILY [facility]; Protocol Last Admin: 08/30/18 10:34 Dose: 40 mg Glucagon (Glucagen Diagnostic Kit) 0 mg IM STAT PRN; Protocol PRN Reason: Hypoglycemia Protocol Sodium Chloride (Sodium Chloride 0.9%) 1,000 mls @ 100 mls/hr IV .Q10H [facility] Last Admin: 08/30/18 17:03 Dose: 100 mls/hr Insulin Human Regular (Humulin R) 0 units SC ACHS [facility]; Protocol Last Admin: 08/30/18 17:00 Dose: 2 units Ondansetron HCl (Zofran Inj) 4 mg IVP Q6 PRN PRN Reason: Nausea/Vomiting Pantoprazole Sodium (Protonix Ec Tab) 40 mg PO DAILY [facility] Last Admin: 08/30/18 10:34 Dose: 40 mg Results - Vital Signs Recent Vital Signs: Last Vital Signs Temp 97.8 F 08/30/18 15:52 Pulse 72 08/30/18 15:52 Resp 18 08/30/18 15:52 BP 120/68 08/30/18 15:52 Pulse Ox 94 L 08/30/18 15:52 - Labs Result Diagrams: 08/29/18 17:46 08/30/18 04:45 Labs: Laboratory Results - last 24 hr 08/29/18 08/29/18 08/29/18 17:46 17:46 17:57 PT 11.6 INR 1.0 APTT 30.9 Sodium Potassium Chloride Carbon Dioxide Anion Gap BUN Creatinine Est GFR ( Amer) Est GFR (Non-Af Amer) POC Glucose (mg/dL) Random Glucose Hemoglobin A1c 8.5 H Calcium Phosphorus Magnesium Total Bilirubin AST ALT Alkaline Phosphatase Troponin I < 0.0120 Total Protein Albumin Globulin Albumin/Globulin Ratio LDL Cholesterol Direct 88 Vitamin B12 Blood Type Blood Type Confirm Antibody Screen BBK History Checked 08/29/18 08/29/18 08/30/18 17:57 21:56 00:16 PT INR APTT Sodium Potassium Chloride Carbon Dioxide Anion Gap BUN Creatinine Est GFR ( Amer) Est GFR (Non-Af Amer) POC Glucose (mg/dL) 152 H Random Glucose Hemoglobin A1c Calcium Phosphorus Magnesium Total Bilirubin AST ALT Alkaline Phosphatase Troponin I < 0.0120 Total Protein Albumin Globulin Albumin/Globulin Ratio LDL Cholesterol Direct Vitamin B12 Blood Type O POSITIVE Blood Type Confirm Antibody Screen Negative BBK History Checked No verified bt 08/30/18 08/30/18 08/30/18 04:45 06:08 08:30 PT INR APTT Sodium 141 Potassium 3.6 Chloride 101 Carbon Dioxide 28 Anion Gap 16 BUN 19 Creatinine 0.9 Est GFR ( Amer) > 60 Est GFR (Non-Af Amer) > 60 POC Glucose (mg/dL) 141 H Random Glucose 156 H Hemoglobin A1c Calcium 9.3 Phosphorus 3.0 Magnesium 1.7 Total Bilirubin 0.5 AST 26 ALT 36 Alkaline Phosphatase 70 Troponin I < 0.0120 Total Protein 7.3 Albumin 3.8 Globulin 3.6 Albumin/Globulin Ratio 1.0 LDL Cholesterol Direct Vitamin B12 527 Blood Type Blood Type Confirm O POSITIVE Antibody Screen BBK History Checked 08/30/18 08/30/18 10:32 16:02 PT INR APTT Sodium Potassium Chloride Carbon Dioxide Anion Gap BUN Creatinine Est GFR ( Amer) Est GFR (Non-Af Amer) POC Glucose (mg/dL) 335 H 236 H Random Glucose Hemoglobin A1c Calcium Phosphorus Magnesium Total Bilirubin AST ALT Alkaline Phosphatase Troponin I Total Protein Albumin Globulin Albumin/Globulin Ratio LDL Cholesterol Direct Vitamin B12 Blood Type Blood Type Confirm Antibody Screen BBK History Checked
--- NOTE | 2018-08-30 18:51 | CARD ---
APPROVED REPORT Date of service: 08/29/2018 EKG Measurement Heart [id number] <Conclusion> Normal sinus rhythm Normal ECG
[2018-08-31 12:23] VITALS: O2SAT 100
== END 2018-08-30 18:40 | disposition home or self-care (01) ==
LOC: SUPCPDRO 17:27 → H.ER 17:27 → H.ERHOLD 19:08 → H.TEL 21:34
PROVIDERS: ADMIT Hospitalist; ATTEND Hospitalist
DX: G45.9 Transient cerebral ischemic attack, unspecified (principal); R29.810 Facial weakness; R29.704 NIHSS score 4; E11.9 Type 2 diabetes mellitus without complications; E78.1 Pure hyperglyceridemia; I10 Essential (primary) hypertension; E78.5 Hyperlipidemia, unspecified; Z79.02 Long term (current) use of antithrombotics/antiplatelets; Z79.4 Long term (current) use of insulin; Z79.82 Long term (current) use of aspirin; Z79.84 Long term (current) use of oral hypoglycemic drugs; Z86.11 Personal history of tuberculosis
CPT/HCPCS: 36415; 70450; 70496; 70498; 70551; 71045; 80053; 80061; 82607; 82948; 83036; 83735; 84100; 84484; 85025; 85610; 85730; 86850; 86900; 93005; 93306; 97161; 99285; G0378; G8978; G8979; J1650; J7030; Q9967